=== PATIENT | female | born 1995 | race Caucasian/White ===

== ENCOUNTER 2017-12-12 18:31 | Emergency (ER) | payer MEDICAID ==
[~2017-12-12] VITALS: Ht 172.7 cm; Wt 80.0 kg
[2017-12-12] MEDS ORDERED: SODIUM CHLORIDE 0.9% 1,000ML IVBOLUS ONE (19:30)
[2017-12-12] MEDS ORDERED: METOCLOPRAMIDE 5 MG/ML, 2ML IVPush ONE (19:30)
[2017-12-12] MEDS ORDERED: DIPHENHYDRAMINE 50 MG/ML, 1ML IVPush ONE (19:30)
[2017-12-12] MEDS ORDERED: KETOROLAC 30 MG/1 ML IVPush ONE (19:30)
[2017-12-12] MEDS ORDERED: KETOROLAC 30 MG/1 ML ONE (20:12)
[2017-12-12] MEDS ORDERED: METOCLOPRAMIDE 5 MG/ML, 2ML ONE (20:12)
[2017-12-12] MEDS ORDERED: DIPHENHYDRAMINE 50 MG CAPSULE ONE (20:17)
[2017-12-12] MEDS ORDERED: DIPHENHYDRAMINE 25 MG CAPSULE PO ONE (20:30)
[2017-12-12 20:37] LABS: BASOPHILS # (AUTO) 0.03 x10^3/uL (0-0.1); BASOPHILS % (AUTO) 0 % (0-1); EOSINOPHILS # (AUTO) 0.08 x10^3/uL (0-0.4); EOSINOPHILS % (AUTO) 0 % (1-7); LYMPHOCYTES # (AUTO) 4.04 x10^3/uL (1-3.4); LYMPHOCYTES % (AUTO) 22 % (22-44); MD NO; MEAN CORPUSCULAR HEMOGLOBIN 28.3 pg (27.0-34.8); MEAN CORPUSCULAR VOLUME 83.3 fL (80-100); MEAN PLATELET VOLUME 8.6 fL (7.4-10.4); MONOCYTES # (AUTO) 0.93 x10^3/uL (0.2-0.8); MONOCYTES % (AUTO) 5 % (2-9); NEUTROPHILS # (AUTO) 12.95 x10^3/uL (1.8-6.8); NEUTROPHILS % (AUTO) 72 % (42-75); PLATELET COUNT 311 x10^3/uL (130-400); RED BLOOD COUNT 5.42 x10^6/uL (3.82-5.3); RED CELL DISTRIBUTION WIDTH 13.7 % (9.6-15.2)
[2017-12-12 20:44] LABS: ALANINE AMINOTRANSFERASE 32 U/L (12-78); ALBUMIN 3.8 g/dL (3.4-5.0); ANION GAP 7 mmol/L (5-15); CALCIUM 9.3 mg/dL (8.5-10.1); CHLORIDE 107 mmol/L (98-107); CREATININE 0.84 mg/dL (0.55-1.02)
[2017-12-12 20:46] LABS: ALKALINE PHOSPHATASE 77 U/L (45-117); BILIRUBIN,TOTAL 0.5 mg/dL (0.2-1.0); TOTAL PROTEIN 8.1 g/dL (6.4-8.2)
[2017-12-12] MEDS ORDERED: LIDOCAINE-MPF 2%, 2ML ONE ×2 (21:06→21:54)
[2017-12-12] MEDS ORDERED: LORazepam 2 MG/ML, 1ML ONE (21:09)
[2017-12-12 21:12] VITALS: BP 136/87
[2017-12-12] MEDS ORDERED: LORazepam 2 MG/ML, 1ML IVPush ONE ×2 (21:30→22:00)
[2017-12-12] MEDS ORDERED: SODIUM BICARBONATE 4.0%, 5ML ONE (21:54)
[2017-12-12 23:06] LABS: GLUCOSE, CSF 51 mg/dL (40-80); TOTAL PROTEIN,CSF 26 mg/dL (15-45)
== END 2017-12-13 00:12 | disposition left against medical advice (07) ==
LOC: ED 23:59
DX: G43.909 Migraine, unspecified, not intractable, without status migrainosus (principal)
CPT/HCPCS: 36415; 62270; 70450; 80053; 82945; 84157; 85025; 87070; 87205; 87252; 89051; 96361; 96374; 96375; 99285; J1885; J2060; J2765; J3490; J7030; Q0163